=== PATIENT | female | born 1940 | race African-American/Black ===

== ENCOUNTER 2017-06-02 13:52 | Emergency (ER) | payer BC, MEDICARE, OTHER ==
[~2017-06-02] VITALS: Ht 162.6 cm; Wt 60.0 kg
[2017-06-02 14:16] VITALS: BP 113/74
== END 2017-06-02 16:32 | disposition left against medical advice (07) ==
LOC: ER 13:55
DX: R53.1 Weakness (principal); R42 Dizziness and giddiness; Z53.21 Procedure and treatment not carried out due to patient leaving prior to being seen by health care provider